=== PATIENT | female | born 1965 ===

== ENCOUNTER 2017-10-21 10:55 | Emergency (ER) | payer OTHER ==
[2017-10-21 10:56] VITALS: BMI 35.2
--- NOTE | 2017-10-21 11:20 | ED PDOC ---
Lower Extremity Pain/Injury Time Seen by Provider: 10/21/17 11:17 Chief Complaint (Nursing): Lower Extremity Problem/Injury Chief Complaint (Provider): KNEE PAIN History Per: Patient (52 Y/O FEMALE HERE WITH LEFT LEG PAIN X 1 MONTH WORSENING THIS WEEK. DENIES ANY FALLS. STATES SHE HAS NOTED INCREASING PAIN WITH BEARING WEIGHT ON LEG. WAS PRESCRIBED FLEXERIL/NAPROXEN BY PMD WITHOUT RELIEF. DENIES ANY BACK PAIN.) Past Medical History Reviewed: Historical Data, Nursing Documentation, Vital Signs Vital Signs: Last Vital Signs Temp 98.1 F 10/21/17 11:00 Pulse 70 10/21/17 11:00 Resp 18 10/21/17 11:00 BP 133/83 10/21/17 11:00 Pulse Ox 97 10/21/17 11:00 - Medical History PMH: Hyperlipidemia - Family History Family History: States: No Known Family Hx - Immunization History Hx Tetanus Toxoid Vaccination: No Hx Influenza Vaccination: No Hx Pneumococcal Vaccination: No - Home Medications Home Medications: Ambulatory Orders Medication Instructions Recorded Naproxen 375 mg PO Q8 PRN #21 tablet 10/21/17 - Allergies Allergies/Adverse Reactions: Allergies Allergy/AdvReac Type Severity Reaction Status Date / Time No Known Allergies Allergy Verified 10/21/17 11:00 Review of Systems ROS Statement: Except As Marked, All Systems Reviewed And Found Negative Physical Exam - Reviewed Nursing Documentation Reviewed: Yes Vital Signs Reviewed: Yes - Physical Exam Appears: Positive for: Well, Non-toxic, No Acute Distress Head Exam: Positive for: ATRAUMATIC, NORMAL INSPECTION, NORMOCEPHALIC Skin: Positive for: Normal Color, Warm, DRY Eye Exam: Positive for: EOMI, Normal appearance, PERRL ENT: Positive for: Normal ENT Inspection Neck: Positive for: Normal, Painless ROM Cardiovascular/Chest: Positive for: Regular Rate, Rhythm Respiratory: Positive for: CNT, Normal Breath Sounds Gastrointestinal/Abdominal: Positive for: Normal Exam, Soft Back: Positive for: Normal Inspection Extremity: Positive for: Normal ROM, Tenderness (POSTERIOR LEFT KNEE TENDERNESS. NO BONY TENDERNESS ELICITED.) Neurologic/Psych: Positive for: Alert, Oriented - ECG O2 Sat by Pulse Oximetry: 97 - Progress ED Course And Treament: TORADOL 30 MG IM X 1 DOSE XRY OF KNEE: NO ACUTE FX XRY OF FEMUR: NO ACUTE FX XRY OF HIP: NO ACUTE FX PATIENT NOTES PAIN IMPROVED BUT STILL NOTES PAIN WITH BENDING/EXTENDING KNEE AND BEARING WEIGHT ON LEG. PLACED IN KNEE IMMOBILIZER AND GIVEN CRUTCH INSTRUCTIONS. Disposition - Clinical Impression Clinical Impression: Knee pain - Patient ED Disposition Is Patient to be Admitted: No - Disposition Referrals: Merry Westbrook MD [Staff Provider] - Disposition: Routine/Home Disposition Time: 14:35 Condition: FAIR Prescriptions: Naproxen 375 mg PO Q8 PRN #21 tablet PRN Reason: Pain, Moderate (4-7) Instructions: Knee Pain (DC) Forms: [facility] ED School/Work Excuse Print Language: HUNGARIAN
--- NOTE | 2017-10-21 12:06 | RAD ---
PROCEDURE: Left Knee Radiographs. HISTORY: PainMacro paint. COMPARISON: None. FINDINGS: BONES: Normal. No fracture. JOINTS: Normal. No osteoarthritis. JOINT EFFUSION: None. OTHER FINDINGS: None. IMPRESSION: Normal radiographs of the left knee.
--- NOTE | 2017-10-21 12:38 | US ---
HISTORY: LEFT KNEE/LEG PAIN . PRIORS: None. FINDINGS: 2-D, color and duplex Doppler analysis of the lower extremity venous circulation using routine protocol from the common and superficial femoral veins through the popliteal veins. Venous compressibility: Normal. Flow and augmentation patterns: Normal. Visualized veins upper third of calf: Post tibial vein appears patent as well. Hurtado cyst: None. IMPRESSION: No sonographic or Doppler evidence for DVT in left lower extremity.
--- NOTE | 2017-10-21 15:13 | RAD ---
PROCEDURE: Left Hip X-ray Radiographs. HISTORY: KNEE Pain. No history of recent/ related trauma provided COMPARISON: None. FINDINGS: BONES: Normal. No fracture. JOINTS: Mild, symmetrical degenerative change. SOFT TISSUES: Normal. OTHER FINDINGS: None. IMPRESSION: No acute findings related to/accounting for the clinical presentation.
--- NOTE | 2017-10-21 15:15 | RAD ---
PROCEDURE: Left femur HISTORY: Bilateral lower extremity Pain. No history of recent/ related trauma provided COMPARISON: October 21, 2017. TECHNIQUE: Standard protocol for this study/examination. FINDINGS: No significant/acute osseous, articular or soft tissue abnormalities. IMPRESSION: No significant or acute findings to account for/ related to the clinical presentation.
[2017-10-21 15:27] VITALS: BP 142/74; PULSE 88; RESP 16; TEMP 98.3; O2SAT 100
== END 2017-10-21 14:50 | disposition home or self-care (01) ==
LOC: H.ER 10:55
DX: M25.562 Pain in left knee (principal); E78.5 Hyperlipidemia, unspecified
CPT/HCPCS: 29530; 73502; 73552; 73562; 93971; 96372; 99283; J1885